=== PATIENT | male | born 1985 | race Caucasian/White ===

== ENCOUNTER 2021-01-09 11:06 | Outpatient (REF) | payer BC, SELFPAY ==
--- NOTE | ~2021-01-09 | XR_ITS ---
EXAMINATION: XR WRIST, RIGHT CLINICAL INFORMATION: Injury COMPARISON: None TECHNIQUE: PA, lateral, and oblique views of the right wrist. FINDINGS: Bone alignment is normal. No fracture or dislocation is seen. There is a well-corticated soft tissue ossification adjacent to the ulnar styloid probably representing an accessory ossicle. Joint spaces are normal. Soft tissues are otherwise normal. XR/XR wrist RT min 3V IMPRESSION: No fracture or dislocation seen.
== END 2021-01-09 11:07 | disposition home or self-care (01) ==
LOC: HO.HMGCX 11:06
PROVIDERS: PCP Internal Medicine; Visit Provider Internal Medicine
DX: S69.91XA Unspecified injury of right wrist, hand and finger(s), initial encounter (principal)
CPT/HCPCS: 73110

== ENCOUNTER → 2021-01-24 08:18 | Outpatient (BNVA) | payer BC, SELFPAY | PROVIDERS: PCP Internal Medicine; Visit Provider Physician Assistant ==

== ENCOUNTER 2021-02-13 12:55 | Outpatient (REF) | payer BC, SELFPAY ==
--- NOTE | ~2021-02-13 | FL_ITS ---
EXAMINATION: FL INJECTION ARTHROGRAM WRIST, RIGHT CLINICAL INFORMATION: Right wrist pain ulnar and palmar aspect. Evaluate for TFC injury. COMPARISON: None TECHNIQUE: Following explaining fluoroscopy-guided right wrist arthrogram procedure, benefits and risk, a written consent was obtained. Patient was placed prone with hand extended and flexed at the wrist joint. The dorsal aspect of the wrist was then cleaned and draped in the usual sterile manner. 1% lidocaine was injected in the skin overlying the radioscaphoid junction. A 25-gauge short 1 1/2 inch needle was then inserted into the radioscaphoid junction and 1 mL of nonionic contrast was injected. Images were obtained for documentation. Subsequently 0.05 mL of gadolinium with 5 mL of saline. 1 to 1.5 mL of the combination was then injected into the wrist joint and needle withdrawn. Complete hemostasis achieved at puncture site with sterile Band-Aid applied postprocedure. Patient tolerated the procedure extremely well. FINDINGS: On fluoroscopy images of the right wrist, there is contrast opacifying the radioscaphoid joint space. The intercarpal and the radioulnar carpal joint space is maintained normal. No fracture, dislocation or subluxation seen. The soft tissues are normal. FLUOROSCOPY TIME: 1.0 minutes DOSE AREA PRODUCT: 0.280 uGy-m2 (microgray-meter squared) FL/FL arthrogram wrist RT IMPRESSION: Successful fluoroscopy-guided right wrist arthrogram procedure performed.
--- NOTE | ~2021-02-13 | MR_ITS ---
EXAMINATION: MR WRIST WITH CONTRAST, RIGHT CLINICAL INFORMATION: Medial right wrist pain following an injury. COMPARISON: Right wrist radiographs dated 01/09/2021 and right wrist fluoroscopic arthrography done earlier the same day. TECHNIQUE: MRI of the wrist was performed following the intra-articular administration of a dilute gadolinium-containing solution (arthrogram) on a high-field scanner. FINDINGS: TRIANGULAR FIBROCARTILAGE: The ulnar styloid and foveal attachments of the triangular fibrocartilage complex demonstrate diffuse irregularity with full-thickness defects. There is an associated avulsion fracture of the ulnar styloid which is radially displaced and measures up to 0.4 cm. The resultant fracture gap measures approximately 0.5 cm. Additionally, there is a full-thickness defect through the adjacent meniscal homologue and ulnar collateral ligament of the wrist. Contrast extends proximally through the defects along the distal ulnar diaphysis and into the distal radioulnar joint. The radial aspect of the triangular fibrocartilage complex is intact. INTRINSIC LIGAMENTS: Intact. TENDONS/MEDIAN NERVE: Intact. ARTICULAR CARTILAGE/BONE: Intact articular cartilage. No additional osseous abnormality. JOINT FLUID/SOFT TISSUES: Within normal limits. MR/MR wrist RT w con IMPRESSION: Mildly displaced avulsion fracture at the ulnar styloid with a resultant fracture gap of 0.5 cm. There is adjacent complex, full-thickness tearing at the foveal and styloid attachments of the ulnar triangular fibrocartilage complex. Additionally, there are full-thickness tears of the meniscal homologue and ulnar collateral ligament of the wrist. Contrast extends proximally along the distal ulna as well as into the distal radioulnar joint.
== END 2021-02-13 12:56 | disposition home or self-care (01) ==
LOC: HO.XRAY 12:55
PROVIDERS: PCP Internal Medicine; Visit Provider Physician Assistant
DX: S69.80XD Other specified injuries of unspecified wrist, hand and finger(s), subsequent encounter (principal)
CPT/HCPCS: 25246; 73115; 73222; A9585

== ENCOUNTER 2022-12-20 10:01 | Outpatient (REF) | payer SELFPAY | END 2022-12-20 10:02 | disposition home or self-care (01) | LOC: HO.HMGCLDS 10:01 | PROVIDERS: PCP Internal Medicine; Visit Provider Internal Medicine | DX: Z00.00 Encounter for general adult medical examination without abnormal findings (principal) | CPT/HCPCS: 36415; 80053; 80061; 84443; 85025 ==

== ENCOUNTER 2024-04-13 14:32 | Outpatient (AMB) | payer SELFPAY ==
--- NOTE | 2024-04-13 14:38 | A.OFFPC_ITS ---
Vital Signs 04/13/24 14:44 Height 5 ft 5 in Weight 154 lb BMI 25.6 BP 116/78 Pulse 87 Pulse Source Pulse Oximeter Temp 97.2 F Pulse Oximetry (%) 94 Intake Visit Reasons: Ear complaints Intake Note: no other issues Allergies No Known Allergies Allergy (Verified 04/13/24 15:12) Medication List - Last Reconciled 04/13/24 by Kenia Simon PA-C dextroamphetamine-amphetamine 10 mg (Adderall) 10 mg PO DAILY loratadine-pseudoephedrine 5-120 mg ER (Claritin-D 12 Hour) 1 tab PO Q12H PFSH Medical History (Updated 04/13/24 @ 15:14 by Kenia Simon PA-C) Unilateral primary osteoarthritis, right knee ADHD Surgical History H/O right knee surgery Social History Alcohol intake: current Alcohol intake frequency: holidays/special occasions only Patient Tobacco Use Status: Never used Tobacco Current occupation: right handed Physical exam (Primary Care) Vital Signs: Last Vital Signs Temp 97.2 F 04/13/24 14:44 Pulse 87 04/13/24 14:44 BP 116/78 04/13/24 14:44 Pulse Ox 94 04/13/24 14:44 Care Plan Goal for BP management: 130/80 at goal today BMI result Body Mass Index 25.6 BMI Assessment/Plan discussion: High BMI High, discussed plan: lifestyle, weight reduction, dietary, physical activity and alcohol moderation Tobacco/Smoking Status: Tobacco use Status Patient Tobacco Use Status Never used Tobacco 04/13/24 14:40 Coding Level of Care Code New Pt Level 4 (03528) Complex EM visit Add On G2211 Diagnoses Right ear pain H92.01 ADHD F90.9 Assessment & Plan Assessment & Plan (1) Right ear pain: Code(s): H92.01 - Otalgia, right ear Category: Medical Plan: No evidence of otitis media or otitis externa or mastoiditis. No foreign bodies noted. Not consistent with cerumen impaction. Patient with fluid in the eardrum will trial Claritin D. Will continue to monitor. (2) ADHD: Code(s): F90.9 - Attention-deficit hyperactivity disorder, unspecified type Category: Medical Plan: Patient to continue Adderall as prescribed. Condition is chronic and stable continue to monitor. Plan Plan - Continue with a short course of Claritin D for three days, with hydration advice and interval cessation to alleviate eustachian tube dysfunction. - Reassess if symptoms persist and consider further evaluation if necessary. - Continue routine health maintenance measures including scheduled physical examination and blood work. Orders: Orders Comprehensive [place]. Panel Fast Today Z00.00 - Encounter for general adult medical examination without abnormal findings Complete Blood Count Auto Diff Today H92.01 - Otalgia, right ear, Z00.00 - Encounter for general adult medical examination without abnormal findings Hemoglobin A1c Today Z00.00 - Encounter for general adult medical examination without abnormal findings PSA,Total (Free>4and<10) Today Z00.00 - Encounter for general adult medical examination without abnormal findings Vitamin B12 and Folate Today Z00.00 - Encounter for general adult medical examination without abnormal findings Magnesium Today Z00.00 - Encounter for general adult medical examination without abnormal findings Liver Panel Today Z00.00 - Encounter for general adult medical examination without abnormal findings Lipid Panel Today Z00.00 - Encounter for general adult medical examination without abnormal findings TSH reflex Free T4 Today Z00.00 - Encounter for general adult medical examination without abnormal findings Vitamin D 25-OH Total Today Z00.00 - Encounter for general adult medical examination without abnormal findings Medications: New loratadine-pseudoephedrine 5-120 mg ER (Claritin-D 12 Hour) 1 tab PO Q12H 30 tabs 1RF Patient Instructions: Patient Instructions - Take Claritin D for three days only, and then take a break for two to three days before resuming if necessary. - Drink plenty of water while on Claritin D to prevent dehydration. - Monitor symptoms and seek further medical advice if the sensation of fluid in the ear persists or worsens. - Attend the upcoming scheduled physical examination and ensure fasting prior to blood work. - Continue routine ear hygiene and avoid any unnecessary antibiotic use unless advised. Scribe Plan - Not visible on output: History of Present Illness The patient is a 38-year-old male presenting with concerns related to ear symptoms following a recent episode of acute otitis media. Approximately two weeks ago, the patient experienced significant ear pain and impaired hearing following travel to the [facility]. The symptoms began on March 28, with soreness developing into severe pain by the following morning. Seeking medical care, the patient was diagnosed with otitis media at an urgent care facility on March 29 and was prescribed a 10-day course of Augmentin, which effectively alleviated the pain. However, the patient continues to experience a sensation leo to having fluid in the ear, causing difficulty in hearing similar to having water lodged post-swimming, without any associated fever or dizziness. Attempts to remedy the condition with Sudafed have been irregular and not substantially effective, prompting a trial of Claritin D. The symptoms are confined to the right ear, and there is no indication of current infection upon examination. Social History - Engaged in professional activities necessitating travel. - Former athlete with history of wrestling. Review of Systems - Ears, nose, mouth, throat: Reports sensation of water in the right ear, difficulty hearing, and previous ear pain. Physical Exam Appearance: Alert. Oriented X3. No acute distress. Head: Normal external exam. Normocephalic. Atraumatic. Eyes: Pupils are equal, round, and reactive to light. Extraocular movements intact. Conjunctiva and sclera normal. Eyelids normal. Ears: External auditory canal normal. Tympanic membranes normal. No eardrum damage or infection noted. Fluid present in the inner ear. No mastoid tenderness is noted. Throat: Pharynx normal. Uvula midline. Moist mucous membranes. Neck: Normal inspection. Neck supple. Full range of motion.No meningeal signs. Cardiovascular: Normal heart rate and rhythm. Respiratory: No respiratory distress. Painless inspiration. Back: Full range of motion noted. Skin: Skin warm and dry. Normal skin color. Normal skin turgor. No rashes/lesion s/lacerations noted. Extremities:Extremities exhibit normal range of motion. Extremities nontender. Neuro: Oriented X 3. No motor deficit. No sensory deficit. Reflexes normal. Plan - Continue with a short course of Claritin D for three days, with hydration advice and interval cessation to alleviate eustachian tube dysfunction. - Reassess if symptoms persist and consider further evaluation if necessary. - Continue routine health maintenance measures including scheduled physical examination and blood work. Patient was informed and verbally consented to the use of an ambient scribe for clinic note documentation during this visit. Discussion Notes During the visit, I reviewed the patient's symptoms and current ear condition, confirming the absence of ongoing infection and eardrum damage. We discussed the likely presence of residual fluid from the resolved infection, contributing to the sensation of fullness and impaired hearing. I recommended a regimen of Claritin D to address any ongoing eustachian tube dysfunction, cautioning against prolonged use and emphasizing the importance of adequate hydration to mitigate drying effects. We reviewed the treatment plan thoroughly, agreeing that additional antibiotics were unnecessary at this stage since the initial course successfully resolved the infection. Patient Instructions - Take Claritin D for three days only, and then take a break for two to three days before resuming if necessary. - Drink plenty of water while on Claritin D to prevent dehydration. - Monitor symptoms and seek further medical advice if the sensation of fluid in the ear persists or worsens. - Attend the upcoming scheduled physical examination and ensure fasting prior to blood work. - Continue routine ear hygiene and avoid any unnecessary antibiotic use unless advised.
[2024-04-13 14:44] VITALS: BP 116/78; PULSE 87; TEMP 36.2; O2SAT 94; BMI 25.6
--- OUTSIDE RECORDS SUMMARY | 2024-04-13 15:26 | XMS_ITS | Clinical Summary ---
Author Organization Formerly [facility] Address [address] [place] [address] Care Team Providers Care Supervisor Nuclear Medicine Name Role Phone Unavailable Primary Care Provider Unavailabl e Social History Tobacco Use Types Packs/Day Years Used Date Smoking Tobacco: Never Assessed Sex and Gender Information Value Date Recorded Sex Assigned at Not on file Gender Identity Not on file Sexual Orientation Not on file Last Filed Vital Signs Vital Sign Reading Time Taken Comments Blood Pressure 112/72 12/29/2012 12:56 PM EDT Pulse 76 12/29/2012 12:56 PM EDT Temperature - - Respiratory Rate - - Oxygen Saturation - - Inhaled Oxygen Concentration - - Weight 81.2 kg (178 lb 15.9 oz) 013 12:56 PM EDT Height - - Body Mass Index - - Plan of Treatment Health Maintenance Due Date Last Done Comments Hepatitis C Virus Screening 1985 HIV Screening 1998 DTaP/Tdap/Td Vaccines (1 - Tdap) 2004 Hepatitis B Vaccines (1 of 3 - 19+ 3-dose series) 2004 COVID-19 Vaccine (2023-2 5 season) 2023 HPV Vaccines Aged Out No longer eligi ble based on patient's age to complete this topic Pneumococcal Vaccine: Pediat yolande (0-5 Years) and At-Risk Patients (6 to 49 Years) Aged Out No longer eligible b ased on patient's age to complete this topic
--- OUTSIDE RECORDS SUMMARY | 2024-04-13 15:26 | XMS_ITS | Encounter Summary ---
Author Organization [facility] Address [address] [place] [address] Phone Care Team Providers Care Medical Billing Representative Name Role Phone Unavailable Primary Care Provider Unavailabl e Encounter Details Date Type Department Care Team (Late st Contact Info) Description 10/31/2016 Conversion Encounter [facility] - [address] [address] Social History Tobacco Use Types Packs/Day Years Used Date Smoking Tobacco: Never Assessed Sex and Gender Information Value Date Recorded Sex Assigned at Not on file Legal Sex Male 4:30 PM EDT Gender Identity Not on file Sexual Orientation Not on file documented as of this encounter Plan of Treatment Not on file documented as of this encounter Visit Diagnoses Not on filedocumented in this encounter
--- OUTSIDE RECORDS SUMMARY | 2024-04-13 15:26 | XMS_ITS ---
Author Organization [facility] DO [facility] Address [address], [place] [id number] Care Team Providers Care Fish Bait Picker Name Role Phone Charles Yancey Primary Care Provider ALLERGIES No Known Allergies REASON FOR VISIT physical, annual visit MEDICATIONS Medication SIG (Take, Route, Fr equency, Duration) Notes Start Date End Date Status Adderall 10 MG 1 tablet as needed Orally Once a day Active SOCIAL HISTORY Tobacco Use: Social History Observation Description Date Details (start date - stop date) Never Smoker NA - NA Sex Assigned At : Social History Observation Description Sex Assigned At Unknown Tobacco Use/Smoking Question Answer Notes Patient is a nonsmoker Additional Findings: Tobacco Non-User Cu rrent non-smoker, currently using no form of tobacco Alcohol Screen Question Answer Notes Did you have a drink contain ing alcohol in the past year? Yes How often did you have a dri nk containing alcohol in the past year? 2 to 4 times a month (2 points) How many drinks did you have on a typical day when you were drinking in the past year? 1 or 2 drinks (0 point) How often did you have 6 or more drinks on one occasion in the past year? Never (0 point) Points 2 Interpretation Negative VITAL SIGNS BMI 27.37 kg/m2 12/04/2022 Blood pressure systolic 132 mm Hg 12/05/19 23 Blood pressure diastolic 80 mm Hg 023 Height 64.50 in 12/04/2022 Weight 162 lbs 12/04/2022 Encounters Encounter Location Date Provider Diagnosis Charles Yancey DO [facility] [address], [place] [id number] 12/04/2022 Charles Yancey Encounter for genera l adult medical examination without abnormal findings Z00.00 ASSESSMENTS Encounter Date Diagnosis Assessment Notes Treatment Notes Treatment Clinical Notes 12/04/2022 Encounter for general adult medical examination without abnormal findings (ICD-10 - Z00.00) PLAN OF TREATMENT Medication Medication Name Sig Start Date Stop Date Notes Adderall 10 MG 1 tablet as needed Orally Once a day Next Appt Details Follow Up: 1 Year, Reason: H &P Progress Notes * Examination Category Sub-Category Detail Notes General Examination GENERAL APPEARANCE: well dev eloped, well nourished, in no acute distress HEAD: normocephalic, atrau matic EYES: pupils equal, round, reactive to light and accommodation, sclera non-icteric EARS: normal NECK/THYROID: neck supple, full ra nge of motion, no cervical lymphadenopathy, thyroid normal, no carotid bruit HEART: regular rate and rhy thm, S1, S2 normal, no murmurs LUNGS: clear to auscultatio n bilaterally ABDOMEN: soft, nontender, non distended, bowel sounds present, normal NEUROLOGIC: nonfocal, motor stre ngth normal upper and lower extremities, sensory exam intact SKIN: warm and dry EXTREMITIES: no clubbing, cyanosi s, or edema PERIPHERAL PULSES: 2+ dorsalis pedis, 2 + posterior tibial MALE GENITOURINARY no hernia, no penile lesions or discharge, no testicular mass, testes descended bilaterally PSYCH: alert, oriented, cog nitive function intact History and Physical Notes * HPI (History of Present Illness) Category Sub-Category Detail Notes Depression Screening PHQ-9 Little inte rest or pleasure in doing things: Not at all Feeling down, depressed, or hopeless: No t at all Trouble falling or staying asleep, or sl eeping too much: Not at all Feeling tired or having little energy: N ot at all Poor appetite or overeating: Not at all Feeling bad about yourself o r that you are a failure, or have let yourself or your family down: Not at all Trouble concentrating on thi ngs, such as reading the newspaper or watching television: Not at all Moving or speaking so slowly that other people could have noticed; or the opposite, being so fidgety or restless that you have been moving around a lot more than usual: Not at all Thoughts that you would be b juan off or of hurting yourself in some way: Not at all Total Score: 0 Interpretation and Intervention Depression Imani butler Findings: Negative Follow-Up for Depression: : Review of PH Q-9 found negative result; no follow-up needed Fall Risk Fall History Have you had two or more fal ls in the past year?: No Have you had any falls with injury in th e past year?: No Fall Risk Assessment:: No falls in the p ast year Communication Needs PCMH Communication Needs - [facility]MH He aring Impairment?: No Vision Impairment?: No Cognitive Impairment?: No
--- OUTSIDE RECORDS SUMMARY | 2024-04-13 15:26 | XMS_ITS | Patient Health Record ---
Author Organization Charles Yancey DO, FACP Address [address], [place] [id number] Care Team Providers Care Bell Attendant Name Role Phone Charles Yancey Primary Care Provider [phone] ALLERGIES No Known Allergies REASON FOR REFERRAL No Information MEDICATIONS Medication SIG (Take, Route, Fr equency, Duration) Notes Start Date End Date Status Adderall 10 MG 1 tablet as needed Orally Once a day Active IMMUNIZATIONS Vaccine Route Administration Date Status Comme nts COVID-19 Pfizer BioNTech Unknown 07/14/2020 Administere d COVID-19 Pfizer BioNTech Unknown 08/04/2020 Administere d Influenza Unknown 02/14/2015 Refused SOCIAL HISTORY Tobacco Use: Social History Observation [...] Never (0 point) Points 2 Interpretation Negative PROBLEMS Problem Type ICD Code Onset Dates Problem Status W/U Status Risk SNOMED Code Notes Problem 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) Active confirmed 19174437 VITAL SIGNS Blood pressure diastolic 60 mm Hg 12/10/2023 Height 64.50 in 12/10/2023 Blood pressure systolic 104 mm Hg 12/10/2023 Weight 147 lbs 12/10/2023 BMI 24.84 kg/m2 12/10/2023 Encounters Encounter Location Date Provider Diagnosis Charles Yancey DO, [facility] [address], [place] [id number] 12/10/2023 Charles Yancey Encounter for genera l adult medical examination without abnormal findings Z00.00 ASSESSMENTS Encounter Date Diagnosis Assessment Notes Treatment Notes Treatment Clinical Notes 12/10/2023 Encounter for general adult medical examination without abnormal findings (ICD-10 - Z00.00) Doing well. Eats well. Exercises and stays active. PLAN OF TREATMENT No Information Insurance Providers Payer Name Payer Address Payer Phone Subscriber Number Group Number Insured Name Patient Relationship to Insured Coverage Start Date Coverage End Date [facility] [address] [address] [place] [address] [phone] [id number] Jarett Espinoza Self - patient is the insured MEDICAL (GENERAL) HISTORY Medical History History ICD Code osteoarthritis, right knee attention deficit hyperactivity disorder Surgical History Surgery Date(Month/Year) right knee surgery for a pat ellar dislocation and a distal femur fracture; this required pinning and was due to a soccer injury (Dr. Watson at [facility]) lasik surgery OU right TKR 02/2019
--- OUTSIDE RECORDS SUMMARY | 2024-04-13 15:26 | XMS_ITS | Clinical Summary ---
Author Organization [facility] Address [address] [place] [address] Phone Care Team Providers Care [employer] Name Role Phone Unavailable Primary Care Provider Unavailabl e Immunizations Name Administration Dates Next Due DTP 11/26/1990, 8,02/14/1986,12/15,1985 Hib (HbOC) 08/16/1987 MMR 11/25/1994,03/17/1987 Meningococcal Conj (Menactra) MCV4P 09/12/2004 OPV 11/26/1990, 8,1985,11/01 Td (adult) (Tenivac), 5 Lf t etanus toxoid, PF, adsorbed 01/17/1998 Unknown Vaccine 03/22/2014 Family History Relation Name Status Comments Father Alive Father: Alive a nd well Mother Alive Mother: Alive a nd well Social History Tobacco Use Types Packs/Day Years Used Date Smoking Tobacco: Never Assessed Sex and Gender Information Value Date Recorded Sex Assigned at Not on file Legal Sex Male 4:30 PM EDT Gender Identity Not on file Sexual Orientation Not on file Plan of Treatment Health Maintenance Due Date Last Done Comments DTaP,Tdap,and Td Vaccines (6 - Tdap) 01/18/1998 01/17/1998, 11/26/1990, 03/17/1987, Additional history exists Varicella Vaccines (1 of 2 - 13+ 2-dose series) 1998 Hepatitis B Vaccines (1 of 3 - 19+ 3-dose series) 2004 Influenza Vaccines (#1) 2023 COVID-19 Vaccine (2023-25 season) 2023 HIB Vaccines Completed 08/16/1987 IPV Vaccines Completed 11/26/1990, 03/1987, 1985, Additional history exists MMR Vaccines Completed 11/25/1994, 03/17/1987 Meningococcal Vaccine Aged Out 09/12/2004 No trey michelle eligible based on patient's age to complete this topic HPV Vaccines Aged Out No longer eligi ble based on patient's age to complete this topic Hepatitis A Vaccines Aged Out No long er eligible based on patient's age to complete this topic Men B Vaccine Aged Out No longer elig ible based on patient's age to complete this topic Pneumococcal Vaccine Aged Out No long er eligible based on patient's age to complete this topic
--- OUTSIDE RECORDS SUMMARY | 2024-04-13 15:27 | XMS_ITS ---
Author Organization Jerald Hay MD Address [address] [place] [phone] Care Team Providers Care Manager Reimbursement Name Role Phone Naye Charles MARINA Primary Care Provider Unavail able Jerald Hay Unavailable [phone] Allergies No Known Allergies REASON FOR VISIT SHOULDER PAIN right x 4 days after a workout, No Covid symptoms Medications Medication SIG (Take, Route, Fr equency, Duration) Notes Start Date End Date Status dexAMETHasone 4 MG 1 tablet Orally thre e times a day for 3 days 04/08/2023 Active Adderall 20 MG 1 tablet Orally Twice a day Not-Taking Vital Signs Blood pressure systolic 112 mm Hg 04/08/19 24 Blood pressure diastolic 70 mm Hg 024 Height 66 in 04/08/2023 Weight 154 lbs 04/08/2023 BMI 24.85 kg/m2 04/08/2023 Encounters Encounter Location Date Provider Diagnosis Jerald Hay MD [address] [place] [address] Drive [address] [place] [phone] 04/08/2023 Jerald Hay Pain of right scapula M89.8X1 Assessments Encounter Date Diagnosis (ICD Code) Assessment Notes Treatment Notes Treatment Clinical Notes Section Notes 04/08/2023 Pain of right scapula (ICD-10 - M89.8X1) Patient/Caregiver verbalizes understanding of medications side effects, interactions and warnings. Plan Of Treatment Medication Medication Name Sig Start Date Stop Date Notes dexAMETHasone 4 MG 1 tablet Orally thre e times a day for 3 days 04/08/2023 Treatment Notes Assessment Notes Pain of right scapula Patient/Caregiver verbalizes understanding of medications side effects, interactions and warnings. Progress Notes * JANIS HELMSOB: [birth year] (37 yo M)Acc No.[id number]:04/08/2023 Progress Notes Patient:?LUCRECIA HELMS Provider:?Jerald Hay MD :1985???Age:37 Y???Sex:Male David e:04/08/2023 Address:[address] [place], [place] [phone] Pcp:Charles Yancey, DO Subjective: * Chief Complaints: * ???SHOULDER PAIN right x 4 d ays after a workoutNo Covid symptoms * HPI: ???Symptom(s):? patient is a 37 yo male , patient of Dr Yancey, here for shoulder pain. 10 years ago had an impingement and feels a knot on his scapua. last summer hurt shoulder with dislocation. rested and in one week was all better. last week was doing all shoulders and next day felt the knot in rt scapula. hurts to take a deep breath feeling discomfort in arm to elbow as well. * ROS:?General/Constitutional:?Denies?Chills.?Denies?Fatigue.?Denies?Fever.?Denies?Headache.?ENT:?Patient denies?decreased sense of smell , any loss of taste , sore throat.?Denies?Sore throat.?Respiratory:?Denies?Cough.?Denies?Shortness of breath at rest.?Denies?Shortness of breath with exertion.?Gastrointestinal:?Denies?Diarrhea.?Denies?Nausea.?Musculoskeletal:?Patient denies?muscle aches.?Peripheral Vascular:?Patient denies?red and blue toes.? * Medical History:? * Surgical History:? * Hospitalization/Major Diagno stic Procedure:? * Medications:?Not-Taking/PRNA dderall 20 MG Tablet 1 tablet Orally Twice a dayMedication List reviewed and reconciled with the patientNot-Taking/PRN Adderall 20 MG Tablet 1 tablet Orally Twice a dayMedication List reviewed and reconciled with the patient * Allergies:?N.K.D.A.yes[Aller gies Verified] Objective: * Vitals:?Ht:66, Wt:154, BMI:2 4.85, BP:112/70. * Examination: ???General Examination: ?GENERAL APPEARANCE:? alert, well hydrated, in no distress .?SKIN:? good turgor.?LUNGS:? clear to auscultation bilaterally.?BACK:? abnormal? with tenderness in rt scapula and crepitance thare as well.? Assessment: * Assessment: 1.?Pain of right scapula - M 89.8X1 (Primary)? Plan: * Treatment: * Procedure Codes:? * * Sign off status: Completed true * Provider:?Jerald Hay MD Date:?0 04/08/2023 Generated for Sukhdev talley/Theresa/Pamelaransmitting on:?04/13/2024 03:26 PM EST History and Physical Notes * HPI (History of Present Illness) Category Sub-Category Detail Notes Category Not es Symptom(s) patient is a 37 yo male , patient of Dr Yancey, here for shoulder pain. 10 years ago had an impingement and feels a knot on his scapua. last summer hurt shoulder with dislocation. rested and in one week was all better. last week was doing all shoulders and next day felt the knot in rt scapula. hurts to take a deep breath feeling discomfort in arm to elbow as well. Examination Category Sub-Category Detail Notes Category Not es General Examination GENERAL APPEARANCE: alert, w ell hydrated, in no distress LUNGS: clear to auscultatio n bilaterally SKIN: good turgor BACK: abnormal with tender ness in rt scapula and crepitance thare as well
--- OUTSIDE RECORDS SUMMARY | 2024-04-13 15:27 | XMS_ITS | Patient Health Record ---
Author Organization Jerald Hay MD Address [address] [place] [phone] Care Team Providers Care Reject Opener Name Role Phone Naye Charles MARINA Primary Care Provider Unavail able Jerald Hay Unavailable [phone] Allergies No Known Allergies Reason For Referral No Information Medications Medication SIG (Take, Route, Fr equency, Duration) Notes Start Date End Date Status dexAMETHasone 4 MG 1 tablet Orally thre e times a day for 3 days 04/08/2023 Active Adderall 20 MG 1 tablet Orally Twice a day Not-Taking Plan Of Treatment No Information Insurance Providers Payer Name Payer Address Payer Phone Subscriber Number Group Number Insured Name Patient Relationship to Insured Coverage Start Date Coverage End Date [facility] [address] [place], [place] [id number] LUCRECIA HELMS Self - patient is the insured
--- OUTSIDE RECORDS SUMMARY | 2024-04-13 15:27 | XMS_ITS ---
Author Organization Charles Yancey DO [facility] Address [address] [place], [place] [phone] Care Team Providers Care Health Education Teacher Name Role Phone Charles Yancey Primary Care Provider ALLERGIES No Known Allergies REASON FOR VISIT annual visit MEDICATIONS Medication SIG (Take, Route, [...] Points 2 Interpretation Negative VITAL SIGNS BMI 24.84 kg/m2 12/10/2023 Blood pressure systolic 104 mm Hg 12/10/19 24 Blood pressure diastolic 60 mm Hg 024 Height 64.50 in 12/10/2023 Weight 147 lbs 12/10/2023 Encounters Encounter Location Date Provider Diagnosis Charles Yancey DO [facility] [address] [place], [place] [phone] 12/10/2023 Charles Yancey Encounter for genera l adult medical examination without abnormal findings Z00.00 ASSESSMENTS Encounter Date Diagnosis Assessment Notes Treatment Notes Treatment Clinical Notes 12/10/2023 Encounter for general adult medical examination without abnormal findings (ICD-10 - Z00.00) Doing well. Eats well. Exercises and stays active. PLAN OF TREATMENT Medication Medication Name Sig Start Date Stop Date Notes Adderall 10 MG 1 tablet as needed Orally Once a day Treatment Notes Assessment Notes Encounter for general adult medical examination without abnormal findings Doing well. Eats well. Exercises and stays active. Next Appt Details Follow Up: 1 Year, Reason: H &P Progress Notes * Examination Category Sub-Category Detail Notes General Examination GENERAL APPEARANCE: well dev eloped, well nourished, in no acute distress HEAD: normocephalic, atrau matic EYES: sclera non-icteric NECK/THYROID: neck supple, full ra nge of [...] 2+ dorsalis pedis, 2 + posterior tibial PSYCH: alert, oriented, cog nitive function intact [...] No Vision Impairment?: No Cognitive Impairment?: No SDOH Questions SDOH Questions In the past year have you been worried about losing your housing?: No In the past year have you or any family members you live with been unable to get any of the following when it was really needed? Check all that apply:: None
--- OUTSIDE RECORDS SUMMARY | 2024-04-13 15:27 | XMS_ITS | Data Portability ---
Author Organization [facility], [address] Address [address] [place] [address] Assessment No assessment recorded. Plan of Treatment Reminders Order Date Submit Date Provider Last Modified By Organization Details Last Modified Time Details Appointments None recorded. Lab None recorded. Referral None recorded. Procedures None recorded. Surgeries None recorded. Imaging None recorded. Medication Orders doxycycline hyclate 100 mg capsule 2023 024 [facility], [address] [place] [address], [address], 08:42:37 Patient TargetsNo targets recorded. Patient Instructions Encounter Date Encounter Id Patient Instructions Last Modified By Organization Details Last Modified Time 10/28/2023 [id number] pilonidal abscess: care instructions [email or web address] Not available 10/28/2023 08:42:35 Apply a warm compress to the affected area for 15-20 minutes at a time up to 4 times a day. Not available 10/28/2023 08:39:34 Reason for Referral None Reported. Problems No Known Problems Medical Equipment None Reported. Medications Name Sig Start Date Stop Date Status Note LastModified by Organization Details LastModified Time doxycycline hyclate 100 mg capsule Take 1 capsule twice a day by oral route for 10 days. 2023 active Not Available Not Available Not Avai lable terbinafine HCl 250 mg tablet 10/27 completed Not Available Not Available Not Available dexamethason e 4 mg tablet 10/27 completed Not Available Not Available Not Available dextroamphet amine-amphet amine 20 mg tablet 10/27 completed Not Available Not Available Not Available Vitals Date Recorded Body height Provider Name an d Address Organization Details Last Updated DateTime 10/28/2023 167.64 cm Toma Beatty [place] - [facility] 08:40:09 Date Recorded Body mass index (BMI) Body weight Provider Name and Address Organization Details Last Updated DateTime 10/28/2023 22.6 kg/m2 69743.93 g Toma Beatty PA - [facility] 10/28/2023 08:40:12 Date Recorded Oxygen saturation Oxygen saturation in Arterial blood by Pulse oximetry Provider Name and Address Organization Details Last Updated DateTime 10/28/2023 100 % 100 % Toma Beatty PA - [facility] 10/28/2023 08:40:25 Date Recorded Pain severity - 0-10 verbal numeric rating [Score] - Reported Provider Name and Address Organization Details Last Updated DateTime 10/28/2023 5 Toma Beatty PA - [facility] 08:40:36 Date Recorded Heart rate Provider Name an d Address Organization Details Last Updated DateTime 10/28/2023 63 /min Toma Beatty PA - [facility] 08:40:58 Date Recorded Respiratory rate Provider Name a nd Address Organization Details Last Updated DateTime 10/28/2023 18 /min Toma Beatty PA - [facility] 08:40:59 Date Recorded Body temperature Provider Name a nd Address Organization Details Last Updated DateTime 10/28/2023 98.5 [degF] Toma Beatty PA - [facility] 0 10/28/2023 08:41:04 Date Recorded Systolic blood pressure Diastolic blood pressure Provider Name and Address Organization Details Last Updated DateTime 10/28/2023 116 mm[Hg] 79 mm[Hg] Toma Beatty PA - [facility] 10/28/2023 08:40:19 Social History Question Answer Notes LastModified by Organizat ion Details LastModified Time Tobacco Smoking Status Never Smoker Toma Betaty [place] - [facility] 10/28/2023 08:41:44 What Is Your Level Of Alcohol Consumption? None Information not available 10/28/2023 Are You Currently Employed? No Information not available 10/28/2023 Have You Had A Flu Shot This Season? Yes Information not available 10/28/2023 What Is Your Relationship Status? Single Information not available 10/28/2023 Are You Passively Exposed To Smoke? No Information no t available 10/28/2023 Have You Recently Traveled Abroad? No Information not available 10/28/2023 Do You Or Have You Ever Used Any Other Forms Of Tobacco Or Nicotine? No Information not available 10/28/2023 Sex: Unknown Functional Status None recorded. Mental Status None recorded. Family History Relationship Description Onset Age of this Age Resolved Age Notes LastModified by Organization Details LastModified Time Father No current problems or disability Not available 10/27 08:41:36 Mother No current problems or disability Not available 10/27 08:41:36 Medical History No medical history recorded. Past Encounters Encounter ID Performer Location Encounter Start Date Encounter Closed Date Diagnosis/Indication Diagnosis SNOMED-CT Code Diagnosis ICD10 Code Diagnosis Note [id number] [address] [place] [address] 10/28/2020 08:29:30 10/28/2020 11:08:17 [id number] [place] [address] 03/08/2021 17:10:11 03/08/2021 18:48:37 [id number] [address] [place] [address] 01/10/2020 16:02:27 01/10/2020 17:38:18 [id number] [address] [place] [address] 03/18/2018 08:25:41 03/18/2018 09:10:50 [id number] [address] [place] [address] 02/07/2021 08:16:08 02/07/2021 09:44:08 [id number] [address] [place] [address] 11/12/2019 12:19:15 11/12/2019 13:05:30 [id number] [address] [facility] [place] [address] 02/05/2021 09:45:34 02/05/2021 10:23:29 [id number] [address] [facility] [place] [address] 10/25/2020 18:22:04 10/25/2020 20:06:39 [id number] [facility] [address] [place] [address] 10/28/2023 08:30:53 10/28/2023 08:44:22 Pilonidal cyst [id number] L05.91 Based on exam and presentati on you are being diagnosed with a Pilonidal Cyst. ? I am going to prescribe you and antibiotic to cover this infection. Please be sure to complete the full course of this antibiotic to prevent antibiotic resistance . I recommend taking a Probiotic with this course of antibiotic s to help to re colonize with good bacteria. ? Antibiotic s will typically take 4-5 days to start to work with symptom improvemen t. ? The following are my other recommenda tions to help with symptoms and is important for this diagnosis: 1. Put warm compresses on the affected area regularly - this will help the infection come to the surface. 2. No creams or lotions on the affected area this includes neosporin. 3. Try not to squeeze the area - but you can apply light pressure to the area after you have applied a warm compress for about 15 minutes. 4. Ok for Ibuprofen or Tylenol for the pain if you are not allergic. Do not take Ibuprofen or any NSAID if you are on a blood thinner. 5. Start doing Epsen Salt Soaks in the bathtub - that will help draw the infection to the surface. ? Return if you feel that the abscess is worsening and may need to be drained. ? Ideally this abscess will open on its own and drain. ? I would be seen again if you develop any of the following symptoms. 1. Fever > 101.0 2. Worsening Pain 3. Increased swelling 4. Increased Redness ? Thank you for using [facility] today, please feel free to contact our office if you have any questions or concerns. Health Concerns Section Related Observation LastModified by Organization Detai ls LastModified Time None Recorded Concern Status LastModified by Organization Details LastModified Time None Recorded Advance Directives Directive None Recorded Payers Encounter Date Sequence Insurance Name Policy Number Policy Dias Covered Member ID Dias Member ID Guarantor Name 02/05/2021 1 [place] [id number] Jarett Clement [id number] Jarett Clement 02/07/2021 1 [place] [id number] Jarett Clement [id number] Jarett Clement 03/08/2021 1 [place] [id number] Jarett Clement [id number] Jarett Clement 10/28/2023 1 [facility] [id number] Jarett Clement [id number] Jarett Clement Notes Date Note Type Note Provider Name and Address Organization Details Recorded Time 10/28/2023 text/html 38 y/o male here with tender bump near the anus, noticed it 2 days ago. [facility] [address] [place], [address], [place] - [facility] 10/28/2023 08:58:39
== END 2024-04-13 15:06 | disposition home or self-care (01) ==
LOC: HO.HMCSH 14:32
PROVIDERS: PCP Internal Medicine; Visit Provider Physician Assistant Medical
DX: H92.01 Otalgia, right ear (principal); F90.9 Attention-deficit hyperactivity disorder, unspecified type

== ENCOUNTER → 2024-04-13 14:32 | Outpatient (BNVA) | payer OTHER, SELFPAY | PROVIDERS: PCP Internal Medicine; Visit Provider Physician Assistant Medical | DX: H92.01 Otalgia, right ear (principal); F90.9 Attention-deficit hyperactivity disorder, unspecified type | CPT/HCPCS: 99202 ==

== ENCOUNTER 2024-05-04 09:18 | Outpatient (AMB) | payer OTHER, SELFPAY ==
--- NOTE | 2024-05-04 09:17 | A.OFFPC_ITS ---
Vital Signs 05/04/24 09:26 Height 5 ft 6 in Weight 152 lb BMI 24.5 BP 124/64 Blood Pressure Location Rt brachial Pulse 86 Pulse Source Pulse Oximeter Temp 97.3 F Pulse Oximetry (%) 97 Intake Visit Reasons: cough Intake Note: no fever buthas had the sweats and chills did have a zpack from Dr. Hay on 04/22/2024 Allergies No Known Allergies Allergy (Verified 05/04/24 10:19) Medication List - Last Reconciled 05/04/24 by Kenia Simon PA-C albuterol sulfate 90 mcg/actuation 1 inh inhalation QID PRN amoxicillin-pot clavulanate 875-125 mg 1 tab PO BID 10 days codeine-guaifenesin 10-100 mg/5 mL 5 mL PO Q6H PRN dextroamphetamine-amphetamine 10 mg (Adderall) 10 mg PO DAILY prednisone 40 mg (2 x 20 mg) PO DAILY 5 days PFSH Medical History (Updated 05/04/24 @ 10:21 by Kenia Simon PA-C) Bronchitis Unilateral primary osteoarthritis, right knee ADHD Surgical History H/O right knee surgery Social History Alcohol intake: current Alcohol intake frequency: holidays/special occasions only Patient Tobacco Use Status: Never used Tobacco Current occupation: right handed Physical exam (Primary Care) Vital Signs: Last Vital Signs Temp 97.3 F 05/04/24 09:26 Pulse 86 05/04/24 09:26 BP 124/64 05/04/24 09:26 Pulse Ox 97 05/04/24 09:26 Care Plan Goal for BP management: 130/80 at goal BMI result Body Mass Index 24.5 normal BMI Tobacco/Smoking Status: Tobacco use Status Patient Tobacco Use Status Never used Tobacco 05/04/24 09:19 Coding Level of Care Code Est Pt Level 3 (48113) Diagnoses Bronchitis J40 Assessment & Plan Assessment & Plan (1) Bronchitis: Code(s): J40 - Bronchitis, not specified as acute or chronic Category: Medical Plan: Plan - Prescribe Augmentin for possible bacterial pneumonia or ongoing bronchitis. - Prescribe a course of Prednisone for wheezing and inflammation. - Provide an Albuterol inhaler for symptomatic relief of wheezing. - Consider Robitussin with Codeine for symptomatic cough management. - Evaluate further if symptoms persist or worsen despite medication. Plan Plan - Prescribe Augmentin for possible bacterial pneumonia or ongoing bronchitis. - Prescribe a course of Prednisone for wheezing and inflammation. - Provide an Albuterol inhaler for symptomatic relief of wheezing. - Consider Robitussin with Codeine for symptomatic cough management. - Evaluate further if symptoms persist or worsen despite medication. Medications: New prednisone 40 mg (2 x 20 mg) PO DAILY 10 tabs 0RF 5 days albuterol sulfate 90 mcg/actuation 1 inh inhalation QID PRN 8.5 grams 0RF shortness of breath or wheezing amoxicillin-pot clavulanate 875-125 mg 1 tab PO BID 20 tabs 0RF 10 days codeine-guaifenesin 10-100 mg/5 mL 5 mL PO Q6H PRN 120 mL 0RF cough Patient Instructions: Patient Instructions - Take Augmentin as prescribed for 7 to 10 days. - Use the Albuterol inhaler every 4 to 6 hours as needed for wheezing relief. - Take Prednisone twice a day for 5 days. - Use Robitussin with Codeine only at night, or when off work, avoiding ope rating heavy machinery. - Monitor symptoms and seek follow-up if no improvement is seen or if conditions worsen. - Avoid any strenuous exercises while experiencing fatigue and respiratory symptoms. Scribe Plan - Not visible on output: History of Present Illness The patient is a 38-year-old male presenting with persistent coughing. The patient was previously treated for fluid in his ear with Claritin, which improved the symptoms. However, since April 19, the patient reports experiencing chills and night sweats, managed with [id number] medications such as Mucinex, NyQuil, DayQuil, and vitamin C. A telemedicine consultation with Dr. Hay on April 22 led to a prescription of a Z-Herson, which initially improved the symptoms by April 29. Despite this, the patient experienced a relapse of coughing on May 02, describing nocturnal coughs and sweating episodes. Family members have also been ill, but the patient tested negative for COVID-19 on April 22. Prior to this illness, the patient was active and exercised four to five times a week, but has been unable to maintain this routine since April 16 due to exhaustion. The patient expresses concerns about the possibility of pneumonia and reports difficulty breathing and reduced activity levels due to persistent respiratory symptoms. Social History - Patient is employed, though specifics about job role or employment environment were not discussed. - Exercise routine previously included visits four to five times a week, disrupted since April 16 due to illness. - Family, including parents and sister, have been sick but specific details were not provided. Review of Systems - Respiratory: Reports persistent cough, difficulty breathing, nocturnal cough, and wheezing. - Constitutional: Reports chills, night sweats, and fatigue. Physical Exam Appearance: Alert. Oriented X3. No acute distress. Head: Normal external exam. Normocephalic. Atraumatic. Eyes: Pupils are equal, round, and reactive to light. Extraocular movements intact. Conjunctiva and sclera normal. Eyelids normal. Ears: External auditory canal normal. Tympanic membranes normal. Throat: Pharynx normal. Uvula midline. Moist mucous membranes. Neck: Normal inspection. Neck supple. Full range of motion. No adenopathy. No meningeal signs noted. Cardiovascular: Normal heart rate and rhythm. Heart sound normal. No murmurs noted. Pulses normal throughout. Respiratory: No respiratory distress. Painless inspiration. Breath sounds include wheezing. No rales/rhonchi noted. Chest nontender. No accessory muscle usage noted or decreased air movement noted. Back: Full range of motion noted. Skin: Skin warm and dry. Normal skin color. Normal skin turgor. No rashes/lesions/lacerations noted. Extremities: Extremities exhibit normal range of motion. Extremities nontender. Neuro: Oriented X 3. No motor deficit. No sensory deficit. Reflexes normal. Results - COVID-19 test on April 22: Negative. Plan - Prescribe Augmentin for possible bacterial pneumonia or ongoing bronchitis. - Prescribe a course of Prednisone for wheezing and inflammation. - Provide an Albuterol inhaler for symptomatic relief of wheezing. - Consider Robitussin with Codeine for symptomatic cough management. - Evaluate further if symptoms persist or worsen despite medication. Patient was informed and verbally consented to the use of an ambient scribe for clinic note documentation during this visit. Discussion Notes I discussed with the patient that the current symptoms are suggestive of bacter ial involvement and possibly pneumonia given the protracted course and insufficient response to the Z-Herson. I recommended starting Augmentin. I emphasized the importance of completing at least a 7-day course. We discussed using Prednisone to reduce inflammation and an Albuterol inhaler for wheezing, explaining that while Robitussin with Codeine could aid nighttime cough, it necessitates caution for drowsiness. Avoid driving or performing hazardous activities while on Codeine. I advised that the patient diligently monitor symptoms and reach out if conditions deteriorate or fail to improve within this treatment course. Patient Instructions - Take Augmentin as prescribed for 7 to 10 days. - Use the Albuterol inhaler every 4 to 6 hours as needed for wheezing relief. - Take Prednisone twice a day for 5 days. - Use Robitussin with Codeine only at night, or when off work, avoiding operating heavy machinery. - Monitor symptoms and seek follow-up if no improvement is seen or if conditions worsen. - Avoid any strenuous exercises while experiencing fatigue and respiratory symptoms.
[2024-05-04 09:26] VITALS: BP 124/64; PULSE 86; TEMP 36.3; O2SAT 97; BMI 24.5
--- OUTSIDE RECORDS SUMMARY | 2024-05-04 10:01 | XMS_ITS | Patient Health Record ---
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) Active confirmed [id number] VITAL SIGNS Blood pressure diastolic 60 mm Hg 12/10/2023 Height 64.50 in 12/10/2023 Blood pressure systolic 104 mm Hg 12/10/2023 Weight 147 lbs 12/10/2023 BMI 24.84 kg/m2 12/10/2023 Encounters Encounter Location Date Provider Diagnosis Charles Yancey DO, [facility] [address] [place], [place] [phone] 12/10/2023 Charles Yancey Encounter for genera l [...] Insured Coverage Start Date Coverage End Date [facility] [address] [address] [place] [address] [id number] Jarett Espinoza Self - patient is the insured MEDICAL (GENERAL) HISTORY Medical History History ICD Code osteoarthritis, right knee attention deficit hyperactivity disorder Surgical History Surgery Date(Month/Year) right knee surgery for a pat ellar dislocation and a distal femur fracture; this required pinning and was due to a soccer injury (Dr. Watson at [facility]) lasik surgery OU right TKR 02/2019
--- OUTSIDE RECORDS SUMMARY | 2024-05-04 10:01 | XMS_ITS ---
Author Organization Charles Yancey DO, FACP Address [address] [place], [place] [phone] Care Team Providers Care Seam Rubber Name Role Phone Charles Yancey Primary Care [...] Location Date Provider Diagnosis Charles Yancey DO [facility] [address] [place], [place] [phone] 12/04/2022 Charles Yancey Encounter for genera l [...]
--- OUTSIDE RECORDS SUMMARY | 2024-05-04 10:01 | XMS_ITS | Patient Health Record ---
Author Organization Jerald Hay MD Address [address] [place], [place] [phone] Care Team Providers Care Blind Escort Name Role Phone Naye Charles Primary Care Provider Jerald Kaufman Unavailable [phone] Allergies No Known Allergies Reason For Referral No Information Medications Medication SIG (Take, Route, Frequency, Duration) Notes Start Date End Date Status Zithromax Z-Herson 250 MG 2 tablet on the f irst day, then 1 tablet daily for 4 days Orally Once a day for 5 day(s) 04/22/2024 Active Adderall 20 MG 1 tablet Orally Twic e a day Not-Taking Encounters Encounter Location Date Provider Diagnosis Jerald Hay MD [address] [place], [place] [phone] 04/22/2024 Jerald Hay Bronchitis J40 Assessments Encounter Date Diagnosis (ICD Code) Assessment Notes Treatment Notes Treatment Clinical Notes Section Notes 04/22/2024 Bronchitis (ICD-10 - J40) have explained to him that these infectioons are most likely viral and suggested going to get a swab but he didn't want to do that and was really wanting an antibiotic to knock this thing out, patient verbalized understnding of medication and directions for use Plan Of Treatment No Information Insurance Providers Payer Name Payer Address Payer Phone Subscriber Number Group Number Insured Name Patient Relationship to Insured Coverage Start Date Coverage End Date [facility] [id number] [place], [place] [id number] [phone] [id number] LUCRECIA HELMS Self - patient is the insured
--- OUTSIDE RECORDS SUMMARY | 2024-05-04 10:01 | XMS_ITS | Encounter Summary ---
Author Organization [facility] Address [address] [place] [address] Phone Care Team Providers Care English Language Learner Teacher Name Role Phone Unavailable Primary Care Provider Unavailabl e Encounter Details Date Type Department Care Team (Late st Contact Info) Description 10/31/2016 Conversion Encounter [facility] - [address] [address] Social History Tobacco Use Types Packs/Day Years [...]
--- OUTSIDE RECORDS SUMMARY | 2024-05-04 10:01 | XMS_ITS | Clinical Summary ---
Author Organization [facility] Address [address] [place] [address] Phone Care Team Providers Care Contact Worker Name Role Phone Unavailable Primary Care Provider Unavailabl e Immunizations Immunization Administration Dates Next Due DTP 11/26/1990, 8,02/14/1986,12/15,1985 [...]
--- OUTSIDE RECORDS SUMMARY | 2024-05-04 10:01 | XMS_ITS | Clinical Summary ---
Author Organization [facility] Address [address] [place] [address] Care Team Providers Care Head Correction Officer Name Role Phone Unavailable Primary Care Provider [...]
--- OUTSIDE RECORDS SUMMARY | 2024-05-04 10:02 | XMS_ITS ---
Author Organization Jerald Hay MD Address [address] [place] [phone] Care Team Providers Care Mattress Packer Name Role Phone Naye Charles MARINA Primary Care Provider Jerald Kaufman Unavailable [phone] Allergies No Known Allergies REASON FOR VISIT cold, burning in his chest, coughing. Patient of Dr. Chiu Video [phone] tested Negative for Covid this morning, c/o started with chills fatigue and fever 3 days ago, nonproductive cough, chest congestion x 4 days Medications Medication SIG (Take, Route, Frequency, Duration) Notes Start Date End Date Status Zithromax Z-Herson 250 MG 2 tablet on the f irst day, then 1 tablet daily for 4 days Orally Once a day for 5 day(s) 04/22/2024 Active Adderall 20 MG 1 tablet Orally Twic e a day Not-Taking Encounters Encounter Location Date Provider Diagnosis Jerald Hay MD [address] [place] [address] Drive [address] [place] [phone] 04/22/2024 Jerald Hay Bronchitis J40 Assessments Encounter [...] and directions for use Plan Of Treatment Medication Medication Name Sig Start Date Stop Date Notes Zithromax Z-Herson 250 MG 2 tablet on the f irst day, then 1 tablet daily for 4 days Orally Once a day for 5 day(s) 04/22/2024 Treatment Notes Assessment Notes Bronchitis have explained to hi m that these infectioons are most likely viral and suggested going to get a swab but he didn't want to do that and was really wanting an antibiotic to knock this thing out, patient verbalized understnding of medication and directions for use Progress Notes * MARISACARIN TANGSDOB: [birth year] (38 yo M)Acc No.[id number]:04/22/2024 Patient:?ANALIALUCRECIA Provider:?Jerald Hay MD :1985???Age:38 Y???Sex:Male David e:04/22/2024 Address:[address] [place], [place] [phone] Pcp:Charles Yancey, DO Subjective: * Chief Complaints: * ???cold, burning in his ches t, coughing. Patient of Dr. Chiu Video [phone] tested Negative for Covid this morningC/o started with chills fatigue and fever 3 days ago, nonproductive cough, chest congestion x 4 days * HPI: ???Symptom(s):?Telehealth?Location of provider rendering services:?[address], [address],?Location of patient:?at address listed in demographics for today's visit,?Patient identification confirmed using:?Name, ,?Telehealth method:?Video conference where patient is visible to the provider of care,?Consent:?Patient verbally consented to treatment, Patient verbally consented to billing insurance company, Patient informed of any privacy concerns related to method of visit,?Total time spend talking with patient (minutes)?20.?patient is a 38 yo male video telehealth visit, has been having burning in chest chills and sweats. still with nagging burning in chest. 3 weeks ago had ear infection.. wants an antibiotic. wants antibiotic. feeling better now than this morning. * ROS:?General/Constitutional:?Denies?Chills.?Denies?Fatigue.?Denies?Fever.?Admits?Headache.?ENT:?Patient denies?decreased sense of smell, any loss of taste, sore throat.?Denies?Sore throat.?Respiratory:?Admits?Cough.?Denies?Shortness of breath at rest.?Denies?Shortness of breath with exertion.?Denies?Sputum production.?Gastrointestinal:?Denies?Diarrhea.?Denies?Nausea.?Musculoskeletal:?Patient denies?muscle aches.?Peripheral Vascular:?Patient denies?red and blue toes.? * Medical History:? * Surgical History:? * Hospitalization/Major Diagno stic Procedure:? * Medications:?Not-Taking/PRNA dderall 20 MG Tablet 1 tablet Orally Twice a day Not-Taking/PRN Adderall 20 MG Tablet 1 tablet Orally Twice a day DiscontinueddexAMETHasone 4 MG Tablet 1 tablet Orally three times a day Medication List reviewed and reconciled with the patientDiscontinued dexAMETHasone 4 MG Tablet 1 tablet Orally three times a day Medication List reviewed and reconciled with the patient * Allergies:?N.K.D.A.yes[Aller gies Verified] Objective: * Vitals:? * Examination: ???General Examination: ?GENERAL APPEARANCE:?alert, well hydrated, in no distress.? Assessment: * Assessment: 1.?Bronchitis - J40 (Primary )??? Plan: * Treatment: * Procedure Codes:? * * Sign off status: Completed true * Provider:?Jerald Hay MD Date:?0 04/22/2024 Generated for Sukhdev talley/Theresa/Jose Alejandro on:?05/04/2024 10:01 AM EST History and Physical Notes * HPI (History of Present Illness) Category Sub-Category Detail Notes Category Not es Symptom(s) Telehealth Location of [facility] rendering services:: [address], [address] patient is a 38 yo male video telehealth visit, has been having burning in chest chills and sweats. still with nagging burning in chest. 3 weeks ago had ear infection.. wants an antibiotic. wants antibiotic. feeling better now than this morning. Location of patient:: at address listed in demographics for today's visit Patient identification confirmed using:: Name, Telehealth method:: Video co nference where patient is visible to the provider of care Consent:: Patient verbally c onsented to treatment, Patient verbally consented to billing insurance company, Patient informed of any privacy concerns related to method of visit Total time spend talking with patient (m inutes): 20 Examination Category Sub-Category Detail Notes Category Not es General Examination GENERAL APPEARANCE: alert, w ell hydrated, in no distress
--- OUTSIDE RECORDS SUMMARY | 2024-05-04 10:02 | XMS_ITS ---
Author Organization Jerald Hay MD Address [address] [place] [phone] Care Team Providers Care Claim Agent Name Role Phone Naye Charles MARINA Primary Care Provider Unavail able Jerald Hay Unavailable [phone] Allergies No Known Allergies REASON FOR VISIT [...] Location Date Provider Diagnosis Jerald Hay MD [address] [place] [address] Drive [address] [place] [phone] 04/08/2023 Jerald Hay Pain of right scapula [...] * JANIS HELMSOB: [birth year] (37 yo M)Acc No.[id number]:04/08/2023 Progress Notes Patient:?LUCRECIA HELMS Provider:?Jerald Hay MD :1985???Age:37 Y???Sex:Male David e:04/08/2023 Address:[address] [place], [place] [phone] Pcp:Charles Yancey, DO Subjective: * Chief Complaints: [...] MD Date:?0 04/08/2023 Generated for Sukhdev talley/Theresa/Pamelaransmitting on:?05/04/2024 10:02 AM EST History and Physical Notes * [...]
--- OUTSIDE RECORDS SUMMARY | 2024-05-04 10:02 | XMS_ITS ---
Author Organization Charles Yancey DO [facility] Address [address] [place], [place] [phone] Care Team Providers Care Customer Care Associate Name Role Phone Charles Yancey Primary Care [...] Location Date Provider Diagnosis Charles Yancey DO [facility] [address] [place], [place] [phone] 12/10/2023 Charles Yancey Encounter for genera l [...] Total Score: 0 Interpretation and Intervention Depression mIani butler Findings: Negative Follow-Up for Depression: : [...]
--- OUTSIDE RECORDS SUMMARY | 2024-05-04 10:02 | XMS_ITS | Data Portability ---
Author Organization [facility] [address] Address [address] [place] [address] Assessment No assessment recorded. Plan of Treatment Reminders Order Date Submit Date Provider Last Modified By Organization Details Last Modified Time Details Appointments None recorded. Lab None recorded. Referral None recorded. Procedures None recorded. Surgeries None recorded. Imaging None recorded. Medication Orders doxycycline hyclate 100 mg capsule 2023 024 [facility], [address] [place] [address], [address], 08:42:37 Patient TargetsNo targets recorded. Patient Instructions Encounter Date Encounter Id Patient Instructions Last Modified By Organization Details Last Modified Time 10/28/2023 [id number] pilonidal abscess: care instructions [email or web address] Not available [...] Not Available Vitals Date Recorded Body height Body mass index (BMI) Body weight Oxygen saturation Oxygen saturation in Arterial blood by Pulse oximetry Pain severity - 0-10 verbal numeric rating [Score] - Reported Heart rate Respiratory rate Body temperature Systolic blood pressure Diastolic blood pressure Provider Name and Address Organization Details Last Updated DateTime 167.64 cm 22.6 kg/m2 04783.9 3 g 100 % 100 % 5 63 /min 18 /min 98.5 [degF] 116 mm[Hg] 79 mm[Hg] Toma Beatty V[facility] - [facility] 08:40:19 Social History Question Answer Notes LastModified by Organizat ion Details LastModified Time Tobacco Smoking Status Never Smoker Toma Beatty [place] - [facility] 10/28/2023 08:41:44 [...] SNOMED-CT Code Diagnosis ICD10 Code Diagnosis Note [id number] [address] [place] [address] 10/28/2020 08:29:30 10/28/2020 11:08:17 [id number] [address] [place] [address] 03/08/2021 17:10:11 03/08/2021 18:48:37 [id number] [address] [facility] [place] [address] 01/10/2020 16:02:27 01/10/2020 17:38:18 [id number] [address] [facility] SUSIE Barker [address] 03/18/2018 08:25:41 03/18/2018 09:10:50 [id number] [address] [place] [address] SUS[place] Barker [address] 02/07/2021 08:16:08 02/07/2021 09:44:08 [id number] [address] [place] [address] [place] [address] 11/12/2019 12:19:15 11/12/2019 13:05:30 [id number] [address] [place] [address] [place] [address] 02/05/2021 09:45:34 02/05/2021 10:23:29 [id number] [address] [place] [address] [place] [address] 10/25/2020 18:22:04 10/25/2020 20:06:39 [id number] [facility] [address] [facility] [address] [place] [address] 10/28/2023 08:30:53 10/28/2023 08:44:22 Pilonidal cyst [id number] L05.91 Based on exam and presentati on [...] Increased Redness ? Thank you for using [employer] today, please feel free to contact our [...] Member ID Guarantor Name 02/05/2021 1 [place] [facility] [id number] Jarett Clement [id number] Jarett Clement 02/07/2021 1 [place] [facility] [id number] Jarett Clement [id number] Jarett Clement 03/08/2021 1 [place] [facility] [id number] Jarett Clement [id number] Jarett Clement 10/28/2023 1 [facility] [id number] Jarett Clement [id number] Jarett Clegemma Notes Date Note Type Note Provider Name and Address Organization Details Recorded Time 10/28/2023 text/html 38 y/o male here with tender bump near the anus, noticed it 2 days ago. V[facility] Coulter [address], [place], [address], [place] - [facility] 10/28/2023 08:58:39
== END 2024-05-04 09:57 | disposition home or self-care (01) ==
LOC: HO.HMCSH 09:18
PROVIDERS: PCP Internal Medicine; Visit Provider Physician Assistant Medical
DX: J40 Bronchitis, not specified as acute or chronic (principal)

== ENCOUNTER 2024-12-27 10:58 | Outpatient (AMB) | payer OTHER, SELFPAY ==
--- NOTE | 2024-12-27 11:06 | MHC.PC.OV ---
Vital Signs 12/27/24 11:27 Height 5 ft 5.87 in Weight 162 lb BMI 26.2 BP 138/80 Respiration 16 Pulse 76 Pulse Source Pulse Oximeter Temp 98.5 F Temp Source Temporal Artery Scan Pulse Oximetry (%) 99 Oxygen Delivery Method Room Air Intake Visit Reasons: Gian Cruz/Dr. 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 Yancey HPI Details 39-year-old male presents to the office requesting an annual physical. Patient has history of ADHD and gets Adderall from elsewhere. [facility] Medical History Bronchitis Unilateral primary osteoarthritis, right knee ADHD Surgical History H/O right knee surgery Family History Father No problems noted. Mother No problems noted. Social History Housing: House Alcohol intake: current Alcohol intake frequency: a few times a month Patient Tobacco Use Status: Never used Tobacco service: No Current occupational status: employed Cognitive needs: No Hearing needs: No Vision needs: No Questionnaire PHQ-9 Over the last 2 weeks, how often have you been bothered by any of the following problems? 1. Little interest or pleasure in doing things: not at all 2. Feeling down, depressed, or hopeless: not at all 3. Trouble falling or staying asleep, or sleeping too much: not at all 4. Feeling tired or having little energy: not at all 5. Poor appetite or overeating: not at all 6. Feeling bad about yourself - or that you are a failure or have let yourself or your family down: not at all 7. Trouble concentrating on things, such as reading the newspaper or watching television: not at all 8. Moving or speaking so slowly that other people could have noticed. Or the opposite - being so fidgety or restless that you have been moving around a lot more than usual: not at all 9. Thoughts that you would be better off or of hurting yourself in some way: not at all Total score: 0 Source: Developed by Drs. Charles Adorno, Inocencia Palumbo, Hilton Paz and colleagues, with an educational bigg from [employer]. Thrive Questionnaire Date Thrive assessed: 12/27/24 I am a: Patient What is your living situation today?: I have a steady place to live Within the past 12 months, did the food you bought not last and you didn't have the money to get more?: Never true Within the past 12 months, did you worry whether your food would run out before you got money to buy more?: Never true Do you have trouble paying for medicines?: No Do you have trouble getting transportation to medical appointments?: No Do you have trouble paying your heating and electricity bill?: No Do you have trouble taking care of your child, family member or friend?: No Do you have trouble with day-to-day activities such as bathing, preparing meals, shopping, managing finances, etc.?: No Are you currently unemployed and looking for a job?: No Are you interested in more education?: No Please select the resources that you would like help with: None THRIVE Score: 0 AUDIT C Alcohol Use Questionnaire (AUDIT-C) 1. How often do you have a drink containing alcohol?: 2-3 times a week 2. How many drinks containing alcohol do you have on a typical day when you are drinking?: 1 or 2 3. How often do you have six or more drinks on one occasion?: Never Total Score: 3 DEEPAK-7 AMB Questionnaire DEEPAK-7 Date DEEPAK - 7 assessed: 12/27/24 Feeling nervous, anxious, or on edge: 0 = Not at all Not being able to stop or control worryin = Not at all Worrying too much about different things: 0 = Not at all Trouble relaxin = Not at all Being so restless that it is hard to sit still: 0 = Not at all Becoming easily annoyed or irritable: 0 = Not at all Feeling afraid as if something awful might happen: 0 = Not at all Total DEEPAK-7 score (0-4 normal; 5-9 mild; 10-14 moderate; 15-21 severe): 0 Source: Developed by Drs. Charles Adorno, Inocencia Palumbo, Hilton Paz and colleagues, with an educational bigg from [employer]. Physical exam (Primary Care) Vital Signs: Last Vital Signs Temp 98.5 F 12/27/24 11:27 Pulse 76 12/27/24 11:27 Resp 16 12/27/24 11:27 BP 138/80 12/27/24 11:27 Pulse Ox 99 12/27/24 11:27 Oxygen Delivery Method Room Air 12/27/24 11:27 BMI result Body Mass Index 26.2 Tobacco/Smoking Status: Tobacco use Status Tobacco use date assessed 12/27/24 12/27/24 11:08 Patient Tobacco Use Status Never used Tobacco 12/27/24 11:31 PHQ-9: PHQ-9 Score PHQ-9: Total score 0 12/27/24 11:31 Thrive Assessment: Date of Thrive Assessment Date Thrive assessed 12/27/24 12/27/24 11:08 Const General: cooperative and healthy appearing Nutritional Appearance: well nourished Orientation/consciousness: patient oriented x3 Limitations: no limitations HENMT Head: Yes normal to inspection Eyes General: appearance normal, both eyes and all related structures Neck Neck: Yes normal visual inspection Chest Chest palpation & inspection: normal palpation of entire chest wall Resp Effort & Inspection: normal respiratory effort Neuro General: patient oriented x3 Coding Level of Care Code New Pt Prev Care 18-39yr([id number] Diagnoses General medical exam Z00.00 Assessment & Plan Assessment & Plan (1) General medical exam: Code(s): Z00.00 - Encounter for general adult medical examination without abnormal findings Category: Medical Plan: Screening blood work has been ordered. Will call with results.
[2024-12-27 11:27] VITALS: BP 138/80; PULSE 76; RESP 16; TEMP 36.9; O2SAT 99; BMI 26.2
== END 2024-12-27 11:48 | disposition home or self-care (01) ==
LOC: HO.HMCSH 10:58
PROVIDERS: PCP Internal Medicine; Visit Provider Internal Medicine
DX: Z00.00 Encounter for general adult medical examination without abnormal findings (principal)

== ENCOUNTER 2024-12-28 10:52 | Outpatient (REF) | payer OTHER, SELFPAY ==
--- OUTSIDE RECORDS SUMMARY | 2024-12-28 12:59 | XMS_ITS | Clinical Summary ---
Author Organization [facility] Address [address] [place] [address] Phone Care Team Providers Care Oncology Transplant Network Manager Name Role Phone Unavailable Primary Care Provider [...] of 3 - 19+ 3-dose series) 2004 HPV Vaccines (1 - 3-dose SCDM series) 2012 Influenza Vaccines (#1) 2024 COVID-19 Vaccine (2024- season) 2024 HIB Vaccines Completed 08/16/1987 IPV Vaccines Completed [...]
--- OUTSIDE RECORDS SUMMARY | 2024-12-28 12:59 | XMS_ITS | Encounter Summary ---
Author Organization [facility] Address [address] [place] [address] Phone Care Team Providers Care Rate Analyst Name Role Phone Unavailable Primary Care Provider Unavailabl e Encounter Details Date Type Department Care Team (Late st Contact Info) Description 10/31/2016 Conversion Encounter [facility] - [address] [address] Social History Tobacco Use Types Packs/Day Years [...]
--- OUTSIDE RECORDS SUMMARY | 2024-12-28 12:59 | XMS_ITS | Clinical Summary ---
Author Organization [facility] Address [address] [place] [id number] Phone Care Team Providers Care Canopy Stringer Name Role Phone Charles Yancey DO Primary Care Provider + [phone] Allergies No known active allergies Medications No known medications Social History Tobacco Use Types Packs/Day Years Used Date Smoking Tobacco: Never Smokeless Tobacco: Never Education Answer Date Recorded Are you interested in more education? Not on moni e 07/12/2022 Are you concerned about learning? Not on file 07/12/2022 No 07/12/2022 No 07/12/2022 Digital Access Answer Date Recorded No 08/12/2022 No 08/12/2022 No 08/12/2022 Reliable internet access at home? Not on file 08/12/2022 Device with a working camera? Not on file Sex and Gender Information Value Date Recorded Sex Assigned at Male 08/07/2020 2:09 PM EDT Legal Sex Male 9:13 PM EDT Gender Identity Not on file Sexual Orientation Not on file Last Filed Vital Signs Vital Sign Reading Time Taken Comments Blood Pressure 103/68 08/07/2020 2:07 PM EDT Pulse 88 08/07/2020 2:07 PM EDT Temperature 36.3 C (97.3 F) 08/07/2020 2:07 PM EDT Respiratory Rate 16 08/07/2020 2:07 PM EDT Oxygen Saturation 97% 08/07/2020 2:07 PM EDT Inhaled Oxygen Concentration - - Weight 74.8 kg (165 lb) 08/07/2020 2:07 PM EDT Height 167.6 cm (5' 6 ) 08/07/2020 2:07 PM EDT Body Mass Index 26.63 08/07/2020 2:07 PM EDT Plan of Treatment Not on file Medical Devices Not on file Insurance [place] Care Teams Canopy Stringer Relationship Specialty Start Date End Date Charles Yancey DO [address] [place] [id number] PCP - General Internal Medicine 08/07/20 Additional Source Comments The information contained in this document represents components of the legal health record. It is not the complete legal health record.[facility]
--- OUTSIDE RECORDS SUMMARY | 2024-12-28 12:59 | XMS_ITS | Clinical Summary ---
Author Organization [facility] Address [address] [place] [address] Care Team Providers Care Associate Professor Of [employer] Name Role Phone Unavailable Primary Care Provider Unavailabl e Social History Tobacco Use Types Packs/Day Years Used Date Smoking Tobacco: Never Assessed Sex and Gender Information Value Date Recorded Sex Assigned at Not on file Legal Sex Male 1:13 PM EDT Gender Identity Not on file [...] - 19+ 3-dose series) 2004 COVID-19 Vaccine (1 - 2023-2 5 season) 2024 HPV Vaccines (No Doses Required) Completed Pneumococcal Vaccine: Pediat yolande (0-5 Years) and At-Risk Patients (6 to 49 Years) Aged Out No longer eligible b ased on patient's age to complete this topic
[2024-12-28 13:27] LABS: MANUAL DIFF FLAG NO
[2024-12-28 13:31] LABS: Hematocrit 49.3 % (42.0-52.0); Hemoglobin 16.5 g/dl (14.0-18.0); Imm Gran Abs Auto 0.02 X10*3/uL (0.00-0.03); Imm Gran Pct Auto 0.3 % (0.0-0.4); Lymphocytes Absolute Auto 1.0 X10*3/uL (1.2-4.9); Mean Corpuscular HGB Conc 33.5 g/dl (31.0-36.0); Mean Corpuscular Hemoglobin 30.2 pg (27.0-33.0); Mean Corpuscular Volume 90.3 fL (80.0-98.0); NRBC Abs Auto 0.000 X10*3/uL (0.0-0.012); NRBC Pct Auto 0.0 /100WBC (0.0-0.2); Platelet Count 266 X10*3/uL (160-400); Red Blood Count 5.46 X10*6/uL (4.60-5.80); White Blood Count 6.4 X10*3/uL (4.8-10.8)
[2024-12-28 14:05] LABS: Alanine Aminotransferase 25 U/L (0-40); Albumin Level 5.2 g/dL (3.5-5.0); Alkaline Phosphatase 87 U/L (39-117); Anion Gap 13 (12-20); Aspartate Amino Transferase 25 U/L (5-37); Blood Urea Nitrogen 15 mg/dL (9-16); Calcium 9.8 mg/dL (8.4-10.2); Carbon Dioxide 28 mmol/L (22-29); Chloride 104 mmol/L (96-108); Cholesterol 186 mg/dL (<200); Estimated Glomerular Filt Rate > 60; HDL Cholesterol 80 mg/dL (>40); Magnesium 2.4 mg/dL (1.6-2.6); Potassium 4.2 mmol/L (3.3-5.1); Sodium 141 mmol/L (135-145); Total Protein 7.8 g/dL (6.5-8.0); Triglycerides 85 mg/dL (<150)
[2024-12-28 14:11] LABS: PSA,Total (Free>4and<10) 0.94 ng/mL (0.00-4.00)
[2024-12-28 14:28] LABS: Folate 9.1 ng/mL (> or = 4.0); Vitamin B12 615 pg/mL (200-900)
== END 2024-12-28 10:53 | disposition home or self-care (01) ==
LOC: HO.HMGCLDS 10:52
PROVIDERS: PCP Internal Medicine; Visit Provider Physician Assistant Medical
DX: Z00.00 Encounter for general adult medical examination without abnormal findings (principal); Z12.5 Encounter for screening for malignant neoplasm of prostate; Z13.6 Encounter for screening for cardiovascular disorders; Z13.1 Encounter for screening for diabetes mellitus; Z13.29 Encounter for screening for other suspected endocrine disorder; H92.01 Otalgia, right ear
CPT/HCPCS: 36415; 80053; 80061; 80076; 82248; 82306; 82607; 82746; 83036; 83735; 84153; 84443; 85025